=== PATIENT | female | born 1965 | race Caucasian/White ===

== ENCOUNTER 2017-04-10 21:30 | Emergency (ER) | payer OTHER ==
[~2017-04-10] VITALS: Ht 172.7 cm; Wt 68.0 kg
[2017-04-10 21:32] VITALS: BP 166/101; PULSE 84; RESP 18; TEMP 99; O2SAT 96
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
[2017-04-10] MEDS ORDERED: KETOROLAC TROMETHAMINE 60 MG/2 ML (IM) VIAL IM ONE (22:45)
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
[2017-04-10] MEDS ORDERED: FLUO20CA4 PO (23:04)
[2017-04-10] MEDS ORDERED: IBUP-232 PO (23:06)
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
[2017-04-10] MEDS ORDERED: HYDR-3534 PO (23:19)
== END 2017-04-10 23:49 | disposition home or self-care (01) ==
LOC: NEPK 21:30
DX: S43.102A Unspecified dislocation of left acromioclavicular joint, initial encounter (principal); S76.311A Strain of muscle, fascia and tendon of the posterior muscle group at thigh level, right thigh, initial encounter; V17.0XXA Pedal cycle driver injured in collision with fixed or stationary object in nontraffic accident, initial encounter; Y93.55 Activity, bike riding; Y92.9 Unspecified place or not applicable; Y99.8 Other external cause status
CPT/HCPCS: 73030; 96372; 99284; J1885